=== PATIENT | female | born 1960 | race American Indian/Alaskan Native ===

== ENCOUNTER 2019-02-14 18:41 | Outpatient (CLI) | payer BC | END 2019-02-14 18:42 | disposition critical access hospital (66) | LOC: EMS 18:41 | PROVIDERS: ATTEND Surgery | DX: R07.9 Chest pain, unspecified (principal) | CPT/HCPCS: A0425; A0429 ==

== ENCOUNTER 2019-02-14 18:59 | Emergency (ER) | payer BC ==
--- NOTE | 2019-02-14 19:27 | ED Physician Documentation ---
PD HPI CHEST PAIN - Stated complaint Stated Complaint: CP - Chief complaint Chief Complaint: Cardiac - History obtained from History obtained from: Patient - History of Present Illness Timing - onset: Today Timing - onset during: Rest Timing - duration: Hours (3) Timing - details: Abrupt onset Pain level now: 0 Quality: Tightness Location: Substernal, Right jaw, Upper back Radiation: Jaw, Neck, Back Improved by: Other (Resolved spontaneously) Associated symptoms: Shortness of air, Diaphoresis, Nausea. No: Vomiting, Feeling faint / dizzy, Palpitations Similar symptoms before: Has not had sx before Recently seen: Not recently seen - Additional information Additional information: Is a 58-year-old woman with a history of hypertension presents with complaints that she was driving home from work in [place] when she developed chest pain substernal it was radiating into her back but also up into the right jaw and neck. She was driving home so she convinced herself that she was not having a heart attack and continued to drive home the hour drive. When she arrived home she went and laid down but the pain was increasing so she told her who was driving who decided to drive her into the emergency department but then pulled into the fire station and had EMS bring her. She described the pain as dull by the time she got transferred onto the EMS gurney it resolved. She has 0 pain now. She does have a family history with her mother having had an DC at age 46, her maternal grandmother had an DC in her maternal aunt had an DC. The patient herself is never had pain like this before and denies history of heart disease. She has had a cold recently for the past 2 weeks feeling stuffy and coughing bringing up just clear phlegm had some initial fever but none now. Patient also had associated sweating and some dry heaving. Review of Systems Constitutional: denies: Fever Eyes: denies: Loss of vision Nose: reports: Congestion Throat: reports: Sore throat Cardiac: reports: Chest pain / pressure. denies: Palpitations Respiratory: reports: Dyspnea, Cough GI: reports: Vomiting. denies: Abdominal Pain, Nausea : denies: Dysuria Musculoskeletal: reports: Neck pain Neurologic: denies: Focal weakness, Syncope PD PAST MEDICAL HISTORY - Past Medical History Past Medical History: Yes Cardiovascular: Hypertension Psych: Depression, Anxiety - Past Surgical History Past Surgical History: Yes Ortho: ACL reconstruction, Carpal Tunnel surgery - Present Medications Home Medications: Ambulatory Orders Medication Instructions Recorded Confirmed Albuterol Sulfate [Albuterol 2 puffs IH Q4HR PRN 02/14/19 02/14/19 Sulfate Hfa] Blood Pressure Meds 02/14/19 Thyroid Meds 02/14/19 - Allergies Allergies/Adverse Reactions: Allergies Allergy/AdvReac Type Severity Reaction Status Date / Time aspirin AdvReac Cramps Verified 02/14/19 19:04 codeine AdvReac Itching Verified 02/14/19 19:04 lisinopril AdvReac Hives Verified 02/14/19 19:04 - Social History Does the pt smoke?: Yes Smoking Status: Current every day smoker Does the pt drink ETOH?: No Does the pt have substance abuse?: No Substance Use and Type: Marijuana - Immunizations Immunizations are current?: Yes - POLST Patient has POLST: No PD ED PE NORMAL - Vitals Vital signs reviewed: Yes - General General: Alert and oriented X 3, No acute distress, Well developed/nourished - HEENT HEENT: Atraumatic, PERRL, EOMI, Moist mucous membranes, Pharynx benign - Neck Neck: Supple, no meningeal sign, No adenopathy, Thyroid normal - Cardiac Cardiac: RRR, No murmur - Respiratory Respiratory: No respiratory distress, Other (Diffuse wheezing inspiratory and expiratory.) - Abdomen Abdomen: Normal bowel sounds, Soft, Non tender, Non distended - Derm Derm: Normal color, Warm and dry, No rash - Extremities Extremities: No deformity, No tenderness to palpate, No edema - Neuro Neuro: Alert and oriented X 3, web press roll tender 2-12 intact, Other (No obvious neurological deficits.) - Psych Psych: Normal mood, Normal affect Results - Vitals Vitals: Vital Signs - 24 hr 02/14/19 02/14/19 02/14/19 19:04 19:21 19:32 Temperature 36.9 C Heart Rate 68 64 Respiratory 16 17 Rate Blood Pressure 116/97 H 164/102 H Blood Pressure 145/72 H [Left] O2 Saturation 97 94 02/14/19 02/14/19 02/14/19 19:55 20:04 20:49 Temperature Heart Rate 81 69 72 Respiratory 18 15 17 Rate Blood Pressure 139/92 H 177/92 H Blood Pressure [Left] O2 Saturation 98 69 L 10/06/19 10/06/19 21:14 21:38 Temperature 36.9 C Heart Rate 63 64 Respiratory 14 14 Rate Blood Pressure 148/68 H 127/72 Blood Pressure [Left] O2 Saturation 97 97 Oxygen O2 Source Room air - EKG (time done) 1908 Rate: Rate (enter#) (66) Rhythm: NSR Ischemia: ST depression (v3, v4). No: ST elevation c/w ischemia Compare to prior EKG: Old EKG unavailable - Labs Labs: Laboratory Tests 02/14/19 02/14/19 02/14/19 19:25 19:25 19:25 WBC 8.1 RBC 4.56 Hgb 13.0 Hct 38.8 MCV 85.1 MCH 28.5 MCHC 33.5 RDW 14.5 Plt Count 237 MPV 11.4 H Neut # (Auto) 5.2 Lymph # (Auto) 1.9 [place] # (Auto) 0.6 Eos # (Auto) 0.4 Baso # (Auto) 0.0 Absolute Nucleated RBC 0.00 Nucleated RBC % 0.0 Sodium 141 Potassium 3.2 L Chloride 103 Carbon Dioxide 27 Anion Gap 11.0 BUN 18 Creatinine 0.7 Estimated GFR (MDRD) 86 L Glucose 106 H Calcium 9.4 Total Bilirubin 0.9 AST 23 ALT 15 Alkaline Phosphatase 59 Troponin I High Sens 128.2 H* Total Protein 7.2 Albumin 4.2 Globulin 3.0 Albumin/Globulin Ratio 1.4 Lipase 32 Urine Color Urine Clarity Urine pH Ur Specific [place] Urine Protein Urine Glucose (UA) Urine Ketones Urine Occult Blood Urine Nitrite Urine Bilirubin Urine Urobilinogen Ur Leukocyte Esterase Ur Microscopic Review Urine Culture Comments 02/14/19 20:20 WBC RBC Hgb Hct MCV MCH MCHC RDW Plt Count MPV Neut # (Auto) Lymph # (Auto) [place] # (Auto) Eos # (Auto) Baso # (Auto) Absolute Nucleated RBC Nucleated RBC % Sodium Potassium Chloride Carbon Dioxide Anion Gap BUN Creatinine Estimated GFR (MDRD) Glucose Calcium Total Bilirubin AST ALT Alkaline Phosphatase Troponin I High Sens Total Protein Albumin Globulin Albumin/Globulin Ratio Lipase Urine Color YELLOW Urine Clarity CLEAR Urine pH 6.5 Ur Specific [place] 1.015 Urine Protein NEGATIVE Urine Glucose (UA) NEGATIVE Urine Ketones TRACE Urine Occult Blood NEGATIVE Urine Nitrite NEGATIVE Urine Bilirubin NEGATIVE Urine Urobilinogen 0.2 (NORMAL) Ur Leukocyte Esterase NEGATIVE Ur Microscopic Review NOT INDICATED Urine Culture Comments NOT INDICATED - Rads (name of study) CXR Radiology: EMP read contemporaneously (Negative chest x-ray), See rad report PD MEDICAL DECISION MAKING - ED course Complexity details: reviewed results, re-evaluated patient, d/w patient, d/w family ED course: EKG did not have any ST elevation. Patient has no prior history of coronary artery disease but does have hypertension. She did take 4 baby aspirin here despite concerns it would upset her stomach. Her troponin came back at 128. Potassium was a little low at 3.2. Will supplement with p.o. potassium and have ordered IV heparin bolus and drip. I discussed with Dr. Null at [facility] and he is excepted the patient. Spoke with Dr. Kay and she has agreed to accept the patient in transfer as the hospitalist. Departure - Departure Disposition: 02 Transfer Acute Care Hosp Clinical Impression: NSTEMI (non-ST elevated myocardial infarction)
[2019-02-14 19:30] LABS: BASOPHILS % (AUTO) 0.5 %; EOSINOPHILS # (AUTO) 0.4 10^3/uL (0.0-0.7); EOSINOPHILS % (AUTO) 4.3 %; LYMPHOCYTES # (AUTO) 1.9 10^3/uL (1.5-3.5); LYMPHOCYTES % (AUTO) 23.1 %; MEAN CORPUSCULAR HEMOGLOBIN 28.5 pg (27.0-31.0); MEAN CORPUSCULAR HGB CONC 33.5 g/dL (32.0-36.0); MEAN CORPUSCULAR VOLUME 85.1 fL (81.0-99.0); MEAN PLATELET VOLUME 11.4 fL (7.9-10.8); MONOCYTES # (AUTO) 0.6 10^3/uL (0.0-1.0); MONOCYTES % (AUTO) 7.2 %; NEUTROPHILS # (AUTO) 5.2 10^3/uL (1.5-6.6); NEUTROPHILS % (AUTO) 64.3 %; PLT - PLATELET COUNT 237 10^3/uL (130-450); RED BLOOD COUNT 4.56 10^6/uL (4.20-5.40); RED CELL DISTRIBUTION WIDTH 14.5 % (12.0-15.0); WHITE BLOOD COUNT 8.1 x10^3/uL (4.8-10.8)
[2019-02-14] MEDS ORDERED: ASPIRIN CHEW 81 MG TABLET PO STA ×2 (19:44→21:39)
[2019-02-14] MEDS ORDERED: ALBUTEROL NEB 2.5 MG/3 ML INH STA (19:44)
[2019-02-14 19:45] LABS: ALBUMIN 4.2 g/dL (3.2-5.5); ALBUMIN/GLOBULIN RATIO 1.4 (1.0-2.2); BILIRUBIN,TOTAL 0.9 mg/dL (0.2-1.0); CALCIUM 9.4 mg/dL (8.5-10.3); CREATININE 0.7 mg/dL (0.4-1.0); TOTAL PROTEIN 7.2 g/dL (6.7-8.2)
--- NOTE | 2019-02-14 20:10 | XRAY Report ---
Reason: chest pain Procedure Date: 02/14/2019 Accession Number: [id number] / [id number] Procedure: XR - Chest 1 View X-Ray CPT Code: 74347 FULL RESULT: EXAM: CHEST RADIOGRAPHY EXAM DATE: 02/14/2019 07:56 PM. CLINICAL HISTORY: Chest pain. COMPARISON: None. TECHNIQUE: 1 view. FINDINGS: Lungs/Pleura: No focal opacities evident. No pleural effusion. No pneumothorax. Mediastinum: Within exam limitations, the cardiomediastinal contour is normal. Other: None. IMPRESSION: No acute intrathoracic plain film abnormality. [facility]
[2019-02-14 20:32] LABS: BILIRUBIN,URINE NEGATIVE (NEGATIVE); GLUCOSE, URINE (UA) NEGATIVE (NEGATIVE); KETONES,URINE (UA) TRACE mg/dL (NEGATIVE); LEUKOCYTE ESTERASE, URINE NEGATIVE (NEGATIVE); NITRITE,URINE NEGATIVE (NEGATIVE); OCCULT BLOOD,URINE NEGATIVE (NEGATIVE); PH,URINE 6.5 PH (5.0-7.5); PROTEIN,URINE NEGATIVE (NEGATIVE); UROBILINOGEN,URINE 0.2 (NORMAL) E.U./dL (NORMAL)
[2019-02-14] MEDS ORDERED: HEPARIN 25000UNITS/500ML (D5W) 25,000 UNIT/500 ML BAG IV STA (20:34)
[2019-02-14] MEDS ORDERED: HEPARIN 5,000 UNIT/ML VIAL IVP STA (20:34)
[2019-02-14 20:37] LABS: CLARITY,URINE CLEAR (CLEAR)
[2019-02-14] MEDS ORDERED: POTASSIUM CHLORIDE 20 MEQ TABLET PO ONE (21:39)
[2019-02-14 22:31] VITALS: BP 143/75
== END 2019-02-14 22:28 | disposition short-term general hospital (02) ==
LOC: ED 18:59
DX: I21.4 Non-ST elevation (NSTEMI) myocardial infarction (principal); E87.6 Hypokalemia; I10 Essential (primary) hypertension; F17.200 Nicotine dependence, unspecified, uncomplicated; Z82.49 Family history of ischemic heart disease and other diseases of the circulatory system
CPT/HCPCS: 36415; 71045; 80053; 81003; 83690; 84484; 85025; 93005; 94640; 96374; 99284; 99285; A9270; 81001; 87086

== ENCOUNTER 2019-02-14 22:33 | Outpatient (CLI) | payer BC | END 2019-02-14 22:34 | disposition short-term general hospital (02) | LOC: EMS 22:33 | PROVIDERS: ATTEND Surgery | DX: I21.4 Non-ST elevation (NSTEMI) myocardial infarction (principal) | CPT/HCPCS: A0425; A0426 ==